=== PATIENT | male | born 1970 | race Two or more races ===

== ENCOUNTER 2023-08-25 10:38 | Inpatient (IN) | payer BC ==
[~2023-08-25] VITALS: Ht 172.7 cm; Wt 72.1 kg
[2023-08-25] MEDS ORDERED: KETOROLAC TROMETHAMINE 15 MG/ML VIAL ONE (11:17)
[2023-08-25] MEDS ORDERED: METOCLOPRAMIDE HCL 10 MG/2 ML VIAL ONE (11:17)
[2023-08-25] MEDS: METOCLOPRAMIDE HCL 10 MG/2 ML VIAL IV ONE (11:20)
[2023-08-25] MEDS: KETOROLAC TROMETHAMINE 15 MG/ML VIAL IV ONE (11:21)
[2023-08-25] MEDS: IV NS 0.9% 1,000 ML BAG IV ONE ×2 (11:22→12:10)
[2023-08-25 11:30] LABS: BASOPHILS % (AUTO) 0.2 % (0.0-2.0); HEMATOCRIT 43 % (39-51); HEMOGLOBIN 14.2 g/dL (13.5-17.5); LYMPHOCYTES # (AUTO) 0.5 K/uL (0.8-4.8); LYMPHOCYTES % (AUTO) 2.2 % (20.0-44.0); MEAN CORPUSCULAR HEMOGLOBIN 29 PG (26.0-33.0); MEAN CORPUSCULAR HGB CONC 33 g/dl (31.0-36.0); MEAN CORPUSCULAR VOLUME 88 fL (80-96); MONOCYTES # (AUTO) 1.6 K/uL (0.1-1.30); MONOCYTES % (AUTO) 6.9 % (2.0-12.0); NEUTROPHILS # (AUTO) 20.7 K/uL (1.8-8.9); NEUTROPHILS % (AUTO) 90.7 % (43.0-81.0); PLATELET COUNT (AUTO) 300 K/uL (150-450); RED BLOOD CELL COUNT(AUTO) 4.91 MIL/uL (4.5-6.0); RED CELL DISTRIBUTION WIDTH 13.9 % (11.5-15.0); WHITE BLOOD COUNT (AUTO) 22.9 K/uL (4.3-11.0)
[2023-08-25] MEDS ORDERED: IV NS 0.9% 250 ML IV ONE (11:39)
[2023-08-25] MEDS ORDERED: IOHEXOL-300 100 ML VIAL IV ONE (11:39)
[2023-08-25] MEDS ORDERED: CT SWABBABLE VALVE TRANS SET 1 EA INFUS.SET MC ONE (11:40)
[2023-08-25 11:41] LABS: CALCIUM, SERUM 9.5 mg/dL (8.5-10.1); CARBON DIOXIDE 28 mmol/L (21-32); CHLORIDE 96 mmol/L (98-107); CREATININE 1.2 mg/dL (0.6-1.3); GLUCOSE 164 mg/dL (74-106); POTASSIUM 3.9 mmol/L (3.5-5.1); SODIUM SERUM 132 mmol/L (136-145); UREA NITROGEN, BLOOD 11 mg/dL (7-18)
[2023-08-25 11:42] LABS: INR 1.08 (0.91-1.10); PARTIAL THROMBOPLASTIN TIME 32.2 SEC (24.3-34.3); PROTHROMBIN TIME 11.4 SECS (9.2-11.1)
[2023-08-25 11:47] LABS: ALANINE AMINOTRANSFERASE 42 U/L (12-78); ALBUMIN 3.5 g/dL (3.4-5.0); ALKALINE PHOSPHATASE 69 U/L (46-116); ASPARTATE AMINOTRANSFERASE 32 U/L (15-37); BILIRUBIN,DIRECT 0.6 mg/dL (0.0-0.2); BILIRUBIN,TOTAL 2.9 mg/dL (0.2-1.0); LIPASE 24 U/L (16-77); TOTAL PROTEIN, SERUM 7.8 g/dL (6.4-8.2)
[2023-08-25 11:49] LABS: LACTIC ACID 2.9 mmol/L (0.4-2.0)
[2023-08-25] MEDS ORDERED: CIPROFLOXACIN IV RTU 200 ML IV ONE (12:05)
[2023-08-25] MEDS: CIPROFLOXACIN IV RTU 400 MG in PREMIX 1 EA IV STA (12:10)
[2023-08-25] MEDS ORDERED: MAGN250T10 PO (12:22)
[2023-08-25] MEDS ORDERED: CHOL100043 PO (12:22)
[2023-08-25] MEDS ORDERED: ASPI-1169 PO (12:22)
[2023-08-25] MEDS ORDERED: OMEGA 3 PO (12:22)
[2023-08-25 12:26] LABS: APPEARANCE,URINE SLIGHTLY CLOUDY (CLEAR); BILIRUBIN,URINE 1+ (NEGATIVE); BLOOD, URINE NEGATIVE Ery/uL (NEGATIVE); COLOR,URINE DARK YELLOW (YELLOW); KETONES,URINE 2+ mg/dL (NEGATIVE); LEUKOCYTE ESTERASE ,URINE NEGATIVE (NEGATIVE); NITRITE, URINE NEGATIVE (NEGATIVE); PROTEIN,URINE TRACE mg/dl (NEGATIVE); UGLUCOSE 1+ mg/dL (NEGATIVE); UROBILINOGEN,URINE 0.2 EU/dL (0.2)
[2023-08-25 12:29] LABS: ADD URINE CULTURE YES; BACTERIA,URINE Rare /HPF (None Seen); RBC,URINE 0-2 /HPF (0-2); SQUAMOUS EPITHELIAL CELL,UR Few /HPF (None Seen); WBC,URINE 0-2 /HPF (0-3); YEAST,URINE Moderate /HPF (None Seen)
[2023-08-25] MEDS: METRONIDAZOLE 500MG/ NS 100ML 100 ML IV ONE (13:00)
[2023-08-25] MEDS ORDERED: BUPIVACAINE 0.5 % PF 150 MG/30 ML VIAL ONE (15:28)
[2023-08-25] MEDS ORDERED: LIDOCAINE 1%-EPI 1:100,000 20 ML VIAL ONE (15:28)
[2023-08-25] MEDS ORDERED: ANESTHESIA TRAY IN PYXIS 1 EA TRAY MC ONE ×2 (15:28→18:30)
[2023-08-25] MEDS ORDERED: BACITRACIN ZINC OINT (15 GM) 15 GM TUBE TP ONE (15:28)
[2023-08-25 16:00] VITALS: BP 135/82; TEMP 99.3; O2SAT 99
[2023-08-25] MEDS ORDERED: ROCURONIUM BROMIDE 50 MG/5 ML ONE (16:13)
[2023-08-25] MEDS ORDERED: FENTANYL PF 250MCG/5ML AMPUL ONE (16:13)
[2023-08-25] MEDS ORDERED: CLINDAMYCIN IV RTU IN D5W 50 ML ONE (16:41)
[2023-08-25] MEDS ORDERED: MAG HYDROX/AL HYDROX/SIMETH 30 ML UDC PO PRN (17:30)
[2023-08-25] MEDS ORDERED: ACETAMINOPHEN 325 MG TABLET PO PRN (17:30)
[2023-08-25] MEDS ORDERED: Z GUARD REMEDY 4 OZ OINT TP PRN (17:30)
[2023-08-25] MEDS ORDERED: MAGNESIUM HYDROXIDE 30 ML UDC PO PRN (17:30)
[2023-08-25] MEDS ORDERED: IV NS 0.9% 1,000 ML IV PRN (17:30)
[2023-08-25] MEDS ORDERED: ZOSYN IVPB 3.375 G in IV D5W 50ml IV SCH (18:00)
[2023-08-25] MEDS: CIPROFLOXACIN IV RTU 400 MG in PREMIX 1 EA IV SCH (19:01)
[2023-08-25 21:00] VITALS: BP 113/75; TEMP 98.8; O2SAT 92
[2023-08-25] MEDS: ACETAMINOPHEN 325 MG TABLET PO SCH (21:20)
[2023-08-25] MEDS: GABAPENTIN 100 MG CAPSULE PO SCH (21:20)
[2023-08-25] MEDS: IBUPROFEN 400 MG TABLET PO SCH (21:20)
[2023-08-25] MEDS: METRONIDAZOLE 500MG/ NS 100ML 500 MG in PREMIX 1 EA IV SCH (21:20)
[2023-08-25] MEDS: IV LR 1000 ML 1,000 ML IV PRN (21:21)
[2023-08-26 06:37] LABS: HEMATOCRIT 34 % (39-51); HEMOGLOBIN 11.6 g/dL (13.5-17.5); LYMPHOCYTES # (AUTO) 0.4 K/uL (0.8-4.8); MEAN CORPUSCULAR HEMOGLOBIN 30 PG (26.0-33.0); MEAN CORPUSCULAR HGB CONC 34 g/dl (31.0-36.0); MEAN CORPUSCULAR VOLUME 87 fL (80-96); MONOCYTES # (AUTO) 0.8 K/uL (0.1-1.30); MONOCYTES % (AUTO) 6.2 % (2.0-12.0); NEUTROPHILS # (AUTO) 11.6 K/uL (1.8-8.9); NEUTROPHILS % (AUTO) 90.8 % (43.0-81.0); PLATELET COUNT (AUTO) 219 K/uL (150-450); RED BLOOD CELL COUNT(AUTO) 3.92 MIL/uL (4.5-6.0); RED CELL DISTRIBUTION WIDTH 13.8 % (11.5-15.0); WHITE BLOOD COUNT (AUTO) 12.8 K/uL (4.3-11.0)
[2023-08-26 06:48] LABS: CALCIUM, SERUM 8.5 mg/dL (8.5-10.1); CREATININE 0.9 mg/dL (0.6-1.3); MAGNESIUM 2.1 mg/dL (1.8-2.4); PHOSPHORUS 3.5 mg/dL (2.5-4.9); POTASSIUM 4.1 mmol/L (3.5-5.1)
[2023-08-26 08:00] VITALS: BP 105/73; TEMP 98.8; O2SAT 98
[2023-08-26] MEDS: ONDANSETRON HCL/PF 4 MG/2 ML VIAL IVP PRN (09:56)
[2023-08-26 16:00] VITALS: BP 125/80; TEMP 98.2; O2SAT 98
[2023-08-26] MEDS: MORPHINE SULFATE INJ 4 MG/ML DISP.SYRIN IV PRN (19:34)
[2023-08-26 20:00] VITALS: BP 132/82; TEMP 99; O2SAT 95
[2023-08-27 04:18] VITALS: O2SAT 98
[2023-08-27 08:00] VITALS: BP 154/105; TEMP 98.4; O2SAT 95
[2023-08-27 09:06] LABS: HEMATOCRIT 37 % (39-51); HEMOGLOBIN 12.6 g/dL (13.5-17.5); LYMPHOCYTES # (AUTO) 0.5 K/uL (0.8-4.8); LYMPHOCYTES % (AUTO) 3.4 % (20.0-44.0); MEAN CORPUSCULAR HEMOGLOBIN 30 PG (26.0-33.0); MEAN CORPUSCULAR HGB CONC 34 g/dl (31.0-36.0); MEAN CORPUSCULAR VOLUME 87 fL (80-96); MONOCYTES # (AUTO) 0.9 K/uL (0.1-1.30); MONOCYTES % (AUTO) 6.1 % (2.0-12.0); NEUTROPHILS % (AUTO) 90.5 % (43.0-81.0); PLATELET COUNT (AUTO) 311 K/uL (150-450); RED BLOOD CELL COUNT(AUTO) 4.25 MIL/uL (4.5-6.0); WHITE BLOOD COUNT (AUTO) 14.3 K/uL (4.3-11.0)
[2023-08-27 10:07] LABS: CALCIUM, SERUM 9.3 mg/dL (8.5-10.1); CREATININE 0.9 mg/dL (0.6-1.3); POTASSIUM 3.7 mmol/L (3.5-5.1)
[2023-08-27] MEDS: MEROPENEM 1 G in IV NS 0.9% 100 ML IV SCH (11:59)
[2023-08-27] MEDS: VANCOMYCIN HCL 1.25 GM in IV D5W 250 ML IV SCH (12:46)
[2023-08-27] MEDS: KETOROLAC TROMETHAMINE INJ 30 MG/ML VIAL IV PRN (15:58)
[2023-08-27 16:00] VITALS: BP 133/98; TEMP 98.6; O2SAT 91
[2023-08-27 20:00] VITALS: BP 133/91; TEMP 97.9; O2SAT 97
[2023-08-28 05:44] VITALS: O2SAT 98
[2023-08-28 07:00] VITALS: BP 137/88; TEMP 97.7; O2SAT 97
[2023-08-28 07:10] LABS: EOSINOPHILS % (AUTO) 0.2 % (0.0-6.0); HEMATOCRIT 37 % (39-51); HEMOGLOBIN 12.3 g/dL (13.5-17.5); LYMPHOCYTES # (AUTO) 0.8 K/uL (0.8-4.8); LYMPHOCYTES % (AUTO) 7.6 % (20.0-44.0); MEAN CORPUSCULAR HEMOGLOBIN 29 PG (26.0-33.0); MEAN CORPUSCULAR HGB CONC 33 g/dl (31.0-36.0); MEAN CORPUSCULAR VOLUME 88 fL (80-96); MONOCYTES # (AUTO) 0.8 K/uL (0.1-1.30); MONOCYTES % (AUTO) 7.8 % (2.0-12.0); NEUTROPHILS # (AUTO) 8.9 K/uL (1.8-8.9); NEUTROPHILS % (AUTO) 84.4 % (43.0-81.0); PLATELET COUNT (AUTO) 346 K/uL (150-450); RED CELL DISTRIBUTION WIDTH 14.3 % (11.5-15.0); WHITE BLOOD COUNT (AUTO) 10.6 K/uL (4.3-11.0)
[2023-08-28 08:03] VITALS: O2SAT 98
[2023-08-28 08:18] LABS: ALBUMIN 2.3 g/dL (3.4-5.0); BILIRUBIN,DIRECT 0.2 mg/dL (0.0-0.2); CALCIUM, SERUM 9.1 mg/dL (8.5-10.1); CREATININE 0.9 mg/dL (0.6-1.3); POTASSIUM 3.5 mmol/L (3.5-5.1); TOTAL PROTEIN, SERUM 6.5 g/dL (6.4-8.2)
[2023-08-28] MEDS: BLOOD SUGAR DIAGNOSTIC 1 EACH STRIP IN SCH (11:11)
[2023-08-28 16:00] VITALS: BP 144/85; TEMP 99.1; O2SAT 93
[2023-08-28 20:00] VITALS: BP 148/84; TEMP 99; O2SAT 94
[2023-08-28] MEDS: IV D5/0.45 NACL 1,000 ML IV PRN (21:00)
[2023-08-28] MEDS: PANTOPRAZOLE 40 MG VIAL IV SCH (21:03)
[2023-08-28 21:17] VITALS: BP 148/84; TEMP 99; O2SAT 94
[2023-08-29 04:28] VITALS: O2SAT 97
[2023-08-29 05:18] VITALS: O2SAT 97
[2023-08-29 07:08] LABS: BASOPHILS % (AUTO) 0.2 % (0.0-2.0); EOSINOPHILS # (AUTO) 0.1 K/uL (0.0-0.7); EOSINOPHILS % (AUTO) 0.8 % (0.0-6.0); HEMATOCRIT 35 % (39-51); HEMOGLOBIN 11.8 g/dL (13.5-17.5); LYMPHOCYTES # (AUTO) 1.1 K/uL (0.8-4.8); LYMPHOCYTES % (AUTO) 11.3 % (20.0-44.0); MEAN CORPUSCULAR HEMOGLOBIN 29 PG (26.0-33.0); MEAN CORPUSCULAR HGB CONC 34 g/dl (31.0-36.0); MEAN CORPUSCULAR VOLUME 87 fL (80-96); MONOCYTES # (AUTO) 1.1 K/uL (0.1-1.30); MONOCYTES % (AUTO) 11.7 % (2.0-12.0); NEUTROPHILS # (AUTO) 7.4 K/uL (1.8-8.9); PLATELET COUNT (AUTO) 373 K/uL (150-450); RED BLOOD CELL COUNT(AUTO) 4.02 MIL/uL (4.5-6.0); RED CELL DISTRIBUTION WIDTH 14.1 % (11.5-15.0); WHITE BLOOD COUNT (AUTO) 9.8 K/uL (4.3-11.0)
[2023-08-29 07:12] LABS: CALCIUM, SERUM 9.1 mg/dL (8.5-10.1); CREATININE 0.9 mg/dL (0.6-1.3); MAGNESIUM 2.3 mg/dL (1.8-2.4); PHOSPHORUS 3.5 mg/dL (2.5-4.9); POTASSIUM 3.2 mmol/L (3.5-5.1)
[2023-08-29] MEDS: POTASSIUM CL. PREMIX PERIPHER. 50 ML IV SCH (07:43)
[2023-08-29 08:00] VITALS: BP 143/89; TEMP 97.9; O2SAT 97
[2023-08-29 08:03] VITALS: O2SAT 98
[2023-08-29 16:00] VITALS: BP 130/75; TEMP 98.1; O2SAT 100
[2023-08-29 20:00] VITALS: BP 144/87; TEMP 99.3; O2SAT 94
[2023-08-30 07:03] LABS: CALCIUM, SERUM 8.5 mg/dL (8.5-10.1); CREATININE 0.8 mg/dL (0.6-1.3); POTASSIUM 3.2 mmol/L (3.5-5.1)
[2023-08-30 07:41] VITALS: O2SAT 94
[2023-08-30 08:00] VITALS: BP 154/103; TEMP 98.8; O2SAT 94
[2023-08-30] MEDS: POTASSIUM CL. PREMIX PERIPHER. 50 ML IV SCH (08:10)
[2023-08-30] MEDS ORDERED: POTASSIUM CHLORIDE 20 MEQ POWDER PACKET PO ONE (09:00)
[2023-08-30] MEDS ORDERED: DIATR MEGLU/DIATRIZOATE SODIUM 120 ML BOTTLE (GASTROGRAPHIN) ONE (11:34)
[2023-08-30 16:00] VITALS: BP 154/98; TEMP 98.8; O2SAT 96
[2023-08-30 22:11] VITALS: BP 147/93; TEMP 99.1; O2SAT 95
[2023-08-31 06:45] LABS: BASOPHILS % (AUTO) 0.2 % (0.0-2.0); EOSINOPHILS # (AUTO) 0.2 K/uL (0.0-0.7); EOSINOPHILS % (AUTO) 1.6 % (0.0-6.0); HEMATOCRIT 38 % (39-51); HEMOGLOBIN 12.4 g/dL (13.5-17.5); LYMPHOCYTES # (AUTO) 1.3 K/uL (0.8-4.8); LYMPHOCYTES % (AUTO) 11.5 % (20.0-44.0); MEAN CORPUSCULAR HEMOGLOBIN 29 PG (26.0-33.0); MEAN CORPUSCULAR HGB CONC 33 g/dl (31.0-36.0); MEAN CORPUSCULAR VOLUME 88 fL (80-96); MONOCYTES % (AUTO) 9.2 % (2.0-12.0); NEUTROPHILS # (AUTO) 8.7 K/uL (1.8-8.9); NEUTROPHILS % (AUTO) 77.5 % (43.0-81.0); PLATELET COUNT (AUTO) 449 K/uL (150-450); RED BLOOD CELL COUNT(AUTO) 4.25 MIL/uL (4.5-6.0); RED CELL DISTRIBUTION WIDTH 14.3 % (11.5-15.0); WHITE BLOOD COUNT (AUTO) 11.2 K/uL (4.3-11.0)
[2023-08-31 07:00] VITALS: BP 140/95; TEMP 99.5; O2SAT 94
[2023-08-31 07:25] LABS: CALCIUM, SERUM 8.9 mg/dL (8.5-10.1); CREATININE 0.8 mg/dL (0.6-1.3); MAGNESIUM 2.4 mg/dL (1.8-2.4); PHOSPHORUS 3.6 mg/dL (2.5-4.9); POTASSIUM 3.7 mmol/L (3.5-5.1)
[2023-08-31] MEDS ORDERED: ERYTHROMYCIN BASE 250 MG PO SCH ×2 (10:00→13:30)
[2023-08-31] MEDS: IV D5/0.45 NACL 1,000 ML IV PRN (12:59)
[2023-08-31] MEDS: ERYTHROMYCIN 500 MG in IV NS 0.9% 100 ML IV ONE (15:18)
[2023-08-31 16:00] VITALS: BP 135/86; TEMP 99.7; O2SAT 94
[2023-08-31 20:00] VITALS: BP 138/95; TEMP 98.1; O2SAT 98
[2023-08-31] MEDS: ERYTHROMYCIN BASE 250 MG PO SCH (23:16)
[2023-09-01 07:23] LABS: BASOPHILS % (AUTO) 0.1 % (0.0-2.0); EOSINOPHILS # (AUTO) 0.3 K/uL (0.0-0.7); EOSINOPHILS % (AUTO) 2.8 % (0.0-6.0); HEMATOCRIT 35 % (39-51); HEMOGLOBIN 11.8 g/dL (13.5-17.5); LYMPHOCYTES # (AUTO) 1.9 K/uL (0.8-4.8); LYMPHOCYTES % (AUTO) 17.3 % (20.0-44.0); MEAN CORPUSCULAR HEMOGLOBIN 29 PG (26.0-33.0); MEAN CORPUSCULAR HGB CONC 34 g/dl (31.0-36.0); MEAN CORPUSCULAR VOLUME 87 fL (80-96); MONOCYTES % (AUTO) 8.9 % (2.0-12.0); NEUTROPHILS # (AUTO) 7.6 K/uL (1.8-8.9); NEUTROPHILS % (AUTO) 70.9 % (43.0-81.0); PLATELET COUNT (AUTO) 459 K/uL (150-450); RED BLOOD CELL COUNT(AUTO) 4.06 MIL/uL (4.5-6.0); RED CELL DISTRIBUTION WIDTH 14.4 % (11.5-15.0); WHITE BLOOD COUNT (AUTO) 10.7 K/uL (4.3-11.0)
[2023-09-01 07:36] LABS: CALCIUM, SERUM 8.2 mg/dL (8.5-10.1); CREATININE 0.7 mg/dL (0.6-1.3); POTASSIUM 3.3 mmol/L (3.5-5.1)
[2023-09-01 08:12] VITALS: BP 130/82; TEMP 98.4; O2SAT 98
[2023-09-01] MEDS: POTASSIUM CL. PREMIX PERIPHER. 50 ML IV SCH (10:18)
[2023-09-01 15:46] VITALS: BP 127/88; TEMP 98.6; O2SAT 100
[2023-09-01 20:00] VITALS: BP 126/81; TEMP 99; O2SAT 98
[2023-09-02 07:18] LABS: CALCIUM, SERUM 8.1 mg/dL (8.5-10.1); CREATININE 0.7 mg/dL (0.6-1.3); POTASSIUM 3.2 mmol/L (3.5-5.1)
[2023-09-02 08:52] VITALS: BP 136/80; TEMP 98.6; O2SAT 95
[2023-09-02] MEDS ORDERED: PANTOPRAZOLE 40 MG/PACK PACK PO SCH (09:00)
[2023-09-02 11:32] VITALS: BP 116/74; TEMP 99; O2SAT 96
[2023-09-02 12:00] VITALS: BP 116/74; TEMP 99; O2SAT 96
[2023-09-02 16:00] VITALS: BP 129/81; TEMP 98.2; O2SAT 95
[2023-09-02] MEDS: POTASSIUM CHLORIDE 20 MEQ TAB.PRT.SR PO SCH (18:12)
[2023-09-02 20:00] VITALS: BP 137/87; TEMP 98.6; O2SAT 98
[2023-09-02] MEDS: PANTOPRAZOLE 40 MG/PACK PACK PO SCH (21:04)
[2023-09-03] MEDS: ZOLPIDEM TARTRATE 5 MG TABLET PO PRN (01:01)
[2023-09-03 06:33] LABS: CREATININE 0.9 mg/dL (0.6-1.3); POTASSIUM 3.6 mmol/L (3.5-5.1)
[2023-09-03 08:00] VITALS: BP 125/81; TEMP 98.4; O2SAT 96
[2023-09-03] MEDS ORDERED: ACID1TAB4 PO (09:21)
[2023-09-03] MEDS ORDERED: ERYT-113 PO (09:21)
[2023-09-03] MEDS ORDERED: DOCU-141 PO (09:21)
[2023-09-03] MEDS ORDERED: ONDA4TAB5 PO (09:21)
[2023-09-03] MEDS ORDERED: GABA300C PO (09:21)
[2023-09-03] MEDS ORDERED: ZOLP5TAB2 PO (09:21)
[2023-09-03] MEDS ORDERED: HYDR-3972 PO (09:21)
== END 2023-09-03 15:44 | disposition home or self-care (01) | DRG 853 ==
LOC: ER 11:07 → MED 14:51
PROVIDERS: ADMIT Internal Medicine; ATTEND Nurse Practitioner Acute Care
PROC: 0DTJ4ZZ Resection of Appendix, Percutaneous Endoscopic Approach (ICD-10-PCS; principal; 2023-08-25)
PROC: 0DNH4ZZ Release Cecum, Percutaneous Endoscopic Approach (ICD-10-PCS; 2023-08-25)
DX: A41.9 Sepsis, unspecified organism (principal); K35.32 Acute appendicitis with perforation, localized peritonitis, and gangrene, without abscess; K56.7 Ileus, unspecified; R17 Unspecified jaundice; E87.1 Hypo-osmolality and hyponatremia; K59.00 Constipation, unspecified; K66.0 Peritoneal adhesions (postprocedural) (postinfection); I10 Essential (primary) hypertension; Z88.0 Allergy status to penicillin; Z79.82 Long term (current) use of aspirin; Z79.899 Other long term (current) drug therapy; E86.1 Hypovolemia; D18.03 Hemangioma of intra-abdominal structures; E80.6 Other disorders of bilirubin metabolism
CPT/HCPCS: 36415; 71045-TC; 74018; 74250-TC; 80048-TC; 80076-TC; 81001; 82962-TC; 83605-TC; 83690-TC; 83735-TC; 84100-TC; 84484-TC; 85025-TC; 85730-TC; 86850-TC; 87040-TC; 87086-TC; 88304-TC; 94761-TC; 94799-TC; A4216; A4223; C9113; G0378; J0330; J0744; J1100; J1364; J1885; J2185; J2270; J2405; J2543; J2704; J2765; J3010; J3480; J3490; J7030; J7050; J7060; J7120; Q9963; Q9967